=== PATIENT | female | born 1990 | race Caucasian/White ===

== ENCOUNTER → 2021-10-18 | Outpatient (CLI) | payer OTHER ==
[~2021-10-18] MED LIST: ZOFRAN4 MG PO
== END ==
LOC: KOH-I 11:32
DX: M54.2 Cervicalgia (principal); R10.9 Unspecified abdominal pain; M54.6 Pain in thoracic spine
CPT/HCPCS: 72040; 72070; 74018

== ENCOUNTER → 2021-10-22 | Outpatient (CLI) | payer OTHER | LOC: KOH-I 11:33 | DX: M54.50 Low back pain, unspecified (principal); M54.2 Cervicalgia | CPT/HCPCS: 72040; 72100 ==

== ENCOUNTER → 2021-11-04 | Outpatient (CLI) | payer OTHER | LOC: KOH-I 11-01 08:30 | DX: S19.9XXA Unspecified injury of neck, initial encounter (principal); M47.812 Spondylosis without myelopathy or radiculopathy, cervical region; M25.78 Osteophyte, vertebrae | CPT/HCPCS: 72125 ==

== ENCOUNTER → 2021-12-10 | Outpatient (CLI) | payer OTHER | LOC: KOH-I 09:30 → EMI 09:38 | DX: M47.812 Spondylosis without myelopathy or radiculopathy, cervical region (principal); M50.323 Other cervical disc degeneration at C6-C7 level; M48.02 Spinal stenosis, cervical region | CPT/HCPCS: 72141 ==

== ENCOUNTER → 2022-02-10 | Outpatient (CLI) | payer OTHER | LOC: CT 02-02 14:30 | DX: R10.13 Epigastric pain (principal) | CPT/HCPCS: Q9967 ==